=== PATIENT | male | born 1995 | race Two or more races ===

== ENCOUNTER 2018-11-30 18:30 | Emergency (ER) | payer SELFPAY ==
[~2018-11-30] VITALS: Ht 170.2 cm; Wt 66.0 kg
[2018-11-30 18:33] VITALS: BP 129/73
== END 2018-11-30 20:45 | disposition left against medical advice (07) ==
LOC: ER 18:30
DX: Z53.21 Procedure and treatment not carried out due to patient leaving prior to being seen by health care provider (principal)